=== PATIENT | female | born 2000 | race Caucasian/White ===

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

== ENCOUNTER 2018-02-28 20:04 | Observation (INO) | payer MEDICAID ==
[~2018-02-28] VITALS: Ht 152.4 cm; Wt 68.9 kg
[2018-02-28 20:04] VITALS: BP_SYST 130
[2018-02-28] MEDS ORDERED: NACL 0.9% 1,000 ML IV ONE (21:00)
[2018-02-28 21:12] LABS: CREATININE 0.44 mg/dL (0.55-1.30); POTASSIUM 3.5 mmol/L (3.5-5.1)
[2018-02-28 21:30] LABS: BASOPHILS # (AUTO) 0.1 K/uL (0.0-0.2); BASOPHILS % (AUTO) 1.2 % (0.0-2.0); EOSINOPHILS # (AUTO) 0.2 K/uL (0.0-0.4); EOSINOPHILS % (AUTO) 1.6 % (0.0-4.0); HEMATOCRIT 38.7 % (36-48); HEMOGLOBIN 12.7 g/dL (12.0-16.0); LYMPHOCYTES # (AUTO) 2.3 K/uL (1.0-5.5); LYMPHOCYTES % (AUTO) 20.3 % (20.5-51.5); MEAN CORPUSCULAR HEMOGLOBIN 30 pg (27-31); MEAN CORPUSCULAR HGB CONC 33 % (32-36); MEAN CORPUSCULAR VOLUME 91 fL (79.0-98.0); MONOCYTES # (AUTO) 0.6 K/uL (0.0-1.0); MONOCYTES % (AUTO) 5.1 % (1.7-9.3); NEUTROPHILS # (AUTO) 8.3 K/uL (1.8-7.7); NEUTROPHILS % (AUTO) 71.8 % (40.0-70.0); PLATELET COUNT (AUTO) 277 K/uL (130-430); RED BLOOD CELL COUNT(AUTO) 4.27 MIL/uL (4.2-6.2); RED CELL DISTRIBUTION WIDTH 11.9 % (9.0-15.0); WHITE BLOOD COUNT (AUTO) 11.5 K/uL (4.5-11.0)
[2018-02-28 21:36] LABS: ALBUMIN 2.9 g/dL (3.4-4.8); TOTAL BILIRUBIN 0.2 mg/dL (0.0-1.0)
[2018-03-01] VITALS (7 sets, daily range): BP systolic 107–118
[2018-03-01] MEDS ORDERED: PREN1TAB81 PO (00:23)
[2018-03-01 01:34] LABS: BILIRUBIN,URINE NEGATIVE (NEGATIVE); BLOOD, URINE 3+ (NEGATIVE); CLARITY/URINE HAZY (CLEAR); COLOR,URINE RED (YELLOW); GLUCOSE,URINE NEGATIVE (NEGATIVE); KETONES,URINE 1+ (NEGATIVE); LEUKOCYTE ESTERASE ,URINE 2+ (NEGATIVE); NITRITE, URINE POSITIVE (NEGATIVE); PH,URINE 6.5 (5.0-8.0); PROTEIN URINE 2+ (NEGATIVE)
[2018-03-01 01:38] LABS: RBC,URINE >100 /HPF (0-3)
[2018-03-01 01:39] LABS: BACTERIA,URINE MODERATE /HPF (None Seen); WBC,URINE 0-3 /HPF (0-3)
[2018-03-01] MEDS: LR 1,000 ML IV SCH ×2 (02:27→22:43)
[2018-03-01 06:49] LABS: BASOPHILS # (AUTO) 0.1 K/uL (0.0-0.2); BASOPHILS % (AUTO) 1.3 % (0.0-2.0); EOSINOPHILS # (AUTO) 0.2 K/uL (0.0-0.4); EOSINOPHILS % (AUTO) 1.4 % (0.0-4.0); HEMATOCRIT 34.5 % (36-48); HEMOGLOBIN 11.6 g/dL (12.0-16.0); LYMPHOCYTES # (AUTO) 2.6 K/uL (1.0-5.5); LYMPHOCYTES % (AUTO) 23.8 % (20.5-51.5); MEAN CORPUSCULAR HEMOGLOBIN 31 pg (27-31); MEAN CORPUSCULAR HGB CONC 34 % (32-36); MEAN CORPUSCULAR VOLUME 91 fL (79.0-98.0); MONOCYTES # (AUTO) 0.6 K/uL (0.0-1.0); MONOCYTES % (AUTO) 5.5 % (1.7-9.3); NEUTROPHILS # (AUTO) 7.4 K/uL (1.8-7.7); PLATELET COUNT (AUTO) 220 K/uL (130-430); RED BLOOD CELL COUNT(AUTO) 3.79 MIL/uL (4.2-6.2); RED CELL DISTRIBUTION WIDTH 11.9 % (9.0-15.0); WHITE BLOOD COUNT (AUTO) 10.9 K/uL (4.5-11.0)
[2018-03-01] MEDS ORDERED: METOCLOPRAMIDE HCL 10 MG/2 ML VIAL ONE (14:26)
[2018-03-01] MEDS ORDERED: ACETAMINOPHEN 325 MG TABLET ONE (14:26)
[2018-03-01] MEDS ORDERED: METOCLOPRAMIDE HCL 10 MG/2 ML VIAL IVP ONE (14:30)
[2018-03-01] MEDS ORDERED: ACETAMINOPHEN 325 MG TABLET PO ONE (14:30)
[2018-03-02 00:06] VITALS: BP_SYST 112
[2018-03-02 07:59] VITALS: BP_SYST 111
[2018-03-02] MEDS: LR 1,000 ML IV SCH (08:59)
[2018-03-02 09:20] VITALS: BP_SYST 111
== END 2018-03-02 10:10 | disposition home or self-care (01) ==
LOC: SED 20:04 → UNDOADMOB 03-01 01:39 → SPU 03-01 01:39 → SMU 03-01 01:39 → SED 03-01 01:45 → SMU 03-01 01:45 → UNDODISOB 03-02 10:10
PROVIDERS: ADMIT Obstetrics & Gynecology; ATTEND Obstetrics & Gynecology
DX: O20.0 Threatened abortion (principal); O26.892 Other specified pregnancy related conditions, second trimester; R42 Dizziness and giddiness; R53.1 Weakness; R11.0 Nausea; Z23 Encounter for immunization; Z3A.19 19 weeks gestation of pregnancy
CPT/HCPCS: 36415 ×2; 76801; 76817; 80053; 81000; 84702; 84703; 85025 ×2; 87086; 90656; 93005; 96360; 96361 ×2; 99285; G0378 ×2; J2765; J7030; J7120 ×2

== ENCOUNTER 2019-07-14 09:26 | Emergency (ER) | payer MEDICAID ==
[~2019-07-14] VITALS: Ht 152.4 cm; Wt 72.6 kg
[~2019-07-14 09:26] MED LIST: PREN1TAB81 PO
[2019-07-14 09:40] VITALS: BP_SYST 147
[2019-07-14] MEDS ORDERED: AMOX500T2 PO (09:40)
[2019-07-14 10:58] VITALS: BP_SYST 119
== END 2019-07-14 11:00 | disposition home or self-care (01) ==
LOC: SED 09:26
DX: J02.9 Acute pharyngitis, unspecified (principal); Z88.1 Allergy status to other antibiotic agents
CPT/HCPCS: 99283

== ENCOUNTER 2021-02-14 18:28 | Emergency (ER) | payer MEDICAID ==
[~2021-02-14] VITALS: Ht 152.4 cm; Wt 68.0 kg
[~2021-02-14 18:28] MED LIST changes: +AMOX500T2 PO; -PREN1TAB81 PO
[2021-02-14 18:40] VITALS: BP_SYST 126
[2021-02-14 19:46] LABS: BASOPHILS % (AUTO) 0.2 % (0.0-2.0); EOSINOPHILS # (AUTO) 0.1 K/uL (0.0-0.4); EOSINOPHILS % (AUTO) 0.6 % (0.0-4.0); HEMATOCRIT 38.1 % (36-48); HEMOGLOBIN 13.5 g/dL (12.0-16.0); LYMPHOCYTES # (AUTO) 1.7 K/uL (1.0-5.5); LYMPHOCYTES % (AUTO) 19.2 % (20.5-51.5); MEAN CORPUSCULAR HEMOGLOBIN 31 pg (27-31); MEAN CORPUSCULAR HGB CONC 36 % (32-36); MEAN CORPUSCULAR VOLUME 87 fL (79.0-98.0); MONOCYTES # (AUTO) 0.4 K/uL (0.0-1.0); NEUTROPHILS # (AUTO) 6.9 K/uL (1.8-7.7); PLATELET COUNT (AUTO) 199 K/uL (130-430); RED BLOOD CELL COUNT(AUTO) 4.36 MIL/uL (4.2-6.2); RED CELL DISTRIBUTION WIDTH 12.4 % (9.0-15.0); WHITE BLOOD COUNT (AUTO) 9.1 K/uL (4.8-10.8)
[2021-02-14 19:57] LABS: INR 0.9 (0.8-1.2); PROTHROMBIN TIME 9.6 SECS (9.5-12.5)
[2021-02-14 21:44] VITALS: BP_SYST 106
== END 2021-02-14 21:44 | disposition home or self-care (01) ==
LOC: SED 18:28
DX: O20.0 Threatened abortion (principal); Z3A.18 18 weeks gestation of pregnancy; Z88.1 Allergy status to other antibiotic agents
CPT/HCPCS: 36415; 76805-TC; 81025; 84702; 85025; 85610-TC; 85730-TC; 86900; 86901; 99284

== ENCOUNTER 2021-07-28 10:50 | Emergency (ER) | payer MEDICAID ==
[~2021-07-28] VITALS: Ht 152.4 cm; Wt 70.3 kg
[2021-07-28 11:00] VITALS: BP_SYST 110
--- NOTE | 2021-07-28 11:00 | NUR ---
BROUGHT BACK TO BED #4 AND TRIAGED. REPORT GIVEN TO DI
--- NOTE | 2021-07-28 11:15 | NUR ---
MD SPAIN AT BEDSIDE ASSESSING PT.
[2021-07-28 11:55] LABS: BASOPHILS % (AUTO) 0.4 % (0.0-2.0); EOSINOPHILS # (AUTO) 0.1 K/uL (0.0-0.4); EOSINOPHILS % (AUTO) 1.6 % (0.0-4.0); HEMATOCRIT 36.2 % (36-48); HEMOGLOBIN 11.9 g/dL (12.0-16.0); LYMPHOCYTES # (AUTO) 1.2 K/uL (1.0-5.5); LYMPHOCYTES % (AUTO) 12.8 % (20.5-51.5); MEAN CORPUSCULAR HEMOGLOBIN 27 pg (27-31); MEAN CORPUSCULAR HGB CONC 33 % (32-36); MEAN CORPUSCULAR VOLUME 81 fL (79.0-98.0); MONOCYTES # (AUTO) 0.6 K/uL (0.0-1.0); MONOCYTES % (AUTO) 6.3 % (1.7-9.3); NEUTROPHILS # (AUTO) 7.3 K/uL (1.8-7.7); NEUTROPHILS % (AUTO) 78.9 % (40.0-70.0); PLATELET COUNT (AUTO) 335 K/uL (130-430); RED BLOOD CELL COUNT(AUTO) 4.47 MIL/uL (4.2-6.2); RED CELL DISTRIBUTION WIDTH 13.5 % (9.0-15.0); WHITE BLOOD COUNT (AUTO) 9.2 K/uL (4.8-10.8)
[2021-07-28 12:10] LABS: CALCIUM 9.2 mg/dL (8.4-11.0); CREATININE 0.49 mg/dL (0.55-1.30); POTASSIUM 4.4 mmol/L (3.5-5.1)
[2021-07-28 12:16] LABS: ALBUMIN 2.6 g/dL (3.4-4.8); TOTAL BILIRUBIN 0.9 mg/dL (0.0-1.0)
[2021-07-28 12:25] LABS: BILIRUBIN,URINE NEGATIVE (NEGATIVE); BLOOD, URINE 3+ (NEGATIVE); CLARITY/URINE CLEAR (CLEAR); COLOR,URINE YELLOW (YELLOW); GLUCOSE,URINE NEGATIVE (NEGATIVE); KETONES,URINE NEGATIVE (NEGATIVE); LEUKOCYTE ESTERASE ,URINE 2+ (NEGATIVE); NITRITE, URINE NEGATIVE (NEGATIVE); PH,URINE 6.5 (5.0-8.0); PROTEIN URINE TRACE (NEGATIVE)
--- NOTE | 2021-07-28 12:25 | NUR ---
IV LINE INSERTED , 20G IN LEFT AC IN ONE ATTEMPT FOR IV CONTRAST CT.
[2021-07-28 13:29] LABS: BACTERIA,URINE RARE /HPF (None Seen)
--- NOTE | 2021-07-28 14:45 | NUR ---
AWAITING CT REPORT.
--- NOTE | 2021-07-28 15:40 | NUR ---
PT WENT FOR [id number] AND IS BACK. AWAITING RESULTS.
[2021-07-28] MEDS ORDERED: CLIN-22 PO (16:25)
[2021-07-28 17:17] VITALS: BP_SYST 110
--- NOTE | 2021-07-28 17:17 | NUR ---
Patient given written and verbal discharge instructions and verbalizes understanding. ER MD discussed with patient the results and treatment provided. Patient in stable condition. ID arm band removed. IV catheter removed intact and dressing applied, no active bleeding. Rx of CLINDAMYCIN given. Patient educated on pain management and to follow up with PMD. Pain Scale 0/10. Opportunity for questions provided and answered. Medication side effect fact sheet provided.
== END 2021-07-28 17:17 | disposition home or self-care (01) ==
LOC: SED 10:50
DX: O90.0 Disruption of cesarean delivery wound (principal)
CPT/HCPCS: 36415; 74177; 76376; 76856; 80053; 81000; 85025; 87086; 99285; Q9967; 99284